=== PATIENT | female | born 1970 | race Caucasian/White ===

== ENCOUNTER 2023-08-13 11:37 | Emergency (ER) | payer OTHER, MEDICAID ==
[~2023-08-13] VITALS: Ht 157.5 cm; Wt 68.0 kg
[~2023-08-13 11:37] MED LIST: MOTRIN
[2023-08-13 11:48] VITALS: BP 126/81; PULSE 78; RESP 16; TEMP 98.9; O2SAT 98
[2023-08-13] MEDS ORDERED: D-ME473S50 PO (12:30)
== END 2023-08-13 13:08 | disposition home or self-care (01) ==
LOC: ER 11:37
DX: J06.9 Acute upper respiratory infection, unspecified (principal)
CPT/HCPCS: 71045; 99283